=== PATIENT | male | born 1985 | race Caucasian/White ===

== ENCOUNTER 2021-04-13 02:14 | Emergency (ER) | payer OTHER ==
[2021-04-13 02:26] VITALS: BP 107/69
[2021-04-13] MEDS ORDERED: ONDANSETRON 4 MG/2 ML VIAL IVP STA (03:05)
[2021-04-13] MEDS ORDERED: SODIUM CHLORIDE 0.9% 1,000 ML IV ONE (03:05)
[2021-04-13 04:56] LABS: HCT 54.6 % (39.0-53.0); HGB 17.7 gm/dL (13.0-17.5); MCH 30.4 pg (25.0-35.0); MCHC 32.3 g/dL (31.0-37.0); MCV 94.1 fL (80.0-100.0); Mean Platelet Volume 7.5; Platelet Count 243 k/uL (150-450); RDW 12.9 % (11.5-15.5); WBC 11.3 k/uL (3.8-10.6)
[2021-04-13 05:29] LABS: Band Neutrophils % 28 %; Lymphocytes # (M) 0.34 k/uL (1.0-4.8); Neutrophils % (M) 61 %; Nucleated Red Blood Cells 0 /100 WBC (0-0); Total Cells Counted 200; Toxic Granulation Present
[2021-04-13 05:53] LABS: ALT 16 U/L (4-49); AST 23 U/L (17-59); African American GFR (CKD) >90 (>60 ml/min/1.73 sqM); Albumin 4.4 g/dL (3.5-5.0); Alkaline Phosphatase 70 U/L (38-126); Amylase 74 U/L (30-110); Anion Gap 7 mmol/L; Blood Urea Nitrogen 26 mg/dL (9-20); Calcium 9.3 mg/dL (8.4-10.2); Carbon Dioxide 23 mmol/L (22-30); Chloride 105 mmol/L (98-107); Glucose 128 mg/dL (74-99); Lipase 107 U/L (23-300); Non-African American GFR(CKD) >90 (>60 ml/min/1.73 sqM); Potassium 5.6 mmol/L (3.5-5.1); Sodium 135 mmol/L (137-145); Total Bilirubin 0.7 mg/dL (0.2-1.3); Total Protein 7.4 g/dL (6.3-8.2)
[2021-04-13 06:35] LABS: C Reactive Protein 2.4 mg/dL (<1.0)
[2021-04-13 08:43] VITALS: PULSE 102; RESP 18; TEMP 97.8
--- NOTE | 2021-05-22 12:51 | ED ---
Abdominal Pain HPI - General Chief Complaint: Abdominal Pain Stated Complaint: Abd Pain Time Seen by Provider: 04/13/21 02:59 Source: patient, EMS Mode of arrival: EMS Limitations: no limitations - History of Present Illness Initial Comments: Please note that this is a repeat dictation. The original appears to have been lost in the electronic record This patient is a 35-year-old man arriving here from [facility]. The patient had developed aching upper abdominal pain, nausea and vomiting this evening. Patient had not noted any worsening or relieving factors. There was no hematemesis or coffee-ground emesis. MD Complaint: abdominal pain -: hour(s) Location: LUQ, RUQ, epigastric Radiation: none Migration to: no migration Severity: moderate Quality: aching Consistency: constant Improves With: nothing Worsens With: nothing Associated Symptoms: nausea, vomiting Review of Systems ROS Statement: Those systems with pertinent positive or pertinent negative responses have been documented in the HPI. ROS Other: All systems not noted in ROS Statement are negative. Constitutional: Denies: fever, chills Respiratory: Denies: cough, dyspnea Cardiovascular: Denies: chest pain, palpitations, edema Gastrointestinal: Reports: abdominal pain, nausea, vomiting. Denies: diarrhea, constipation, hematemesis, melena, hematochezia Genitourinary: Denies: dysuria, hematuria, testicular pain Musculoskeletal: Denies: back pain Skin: Denies: rash Neurological: Denies: headache, weakness Past Medical History Past Medical History: No Reported History History of Any Multi-Drug Resistant Organisms: None Reported Past Surgical History: Appendectomy, Orthopedic Surgery Additional Past Surgical History / Comment(s): rt foot Past Psychological History: No Psychological Hx Reported Smoking Status: Current every day smoker Past Alcohol Use History: None Reported Past Drug Use History: Marijuana, Methamphetamine General Exam Limitations: no limitations General appearance: alert, in no apparent distress Head exam: Present: atraumatic, normocephalic Eye exam: Present: normal appearance. Absent: scleral icterus, conjunctival injection ENT exam: Present: normal oropharynx, mucous membranes moist Respiratory exam: Present: normal lung sounds bilaterally. Absent: respiratory distress, wheezes, rales, rhonchi, stridor Cardiovascular Exam: Present: regular rate, normal rhythm, normal heart sounds. Absent: systolic murmur, diastolic murmur, rubs, gallop GI/Abdominal exam: Present: soft. Absent: distended, tenderness, guarding, rebound, rigid, mass, pulsatile mass, hernia Extremities exam: Present: normal inspection, normal capillary refill. Absent: pedal edema Back exam: Present: normal inspection. Absent: CVA tenderness (R), CVA tenderness (L) Neurological exam: Present: alert Skin exam: Present: warm, dry, intact, normal color. Absent: rash Course Vital Signs 04/13/21 04/13/21 02:22 08:41 Temperature 98.9 F 97.8 F Pulse Rate 104 H 102 H Respiratory 20 18 Rate Blood Pressure 107/69 107/69 O2 Sat by Pulse 99 99 Oximetry Medical Decision Making - Medical Decision Making This patient is 35-year-old man with upper abdominal pain developing tonight as well as nausea and vomiting. He is feeling much better following fluids and antiemetic. On the exam there are no concerning abdominal findings. Given that patient is markedly better and workup unremarkable, will discharge back to the facility to continue his rehabilitation care. Discussed appropriate further care and follow-up as well as return parameters. - Lab Data Result diagrams: 04/13/21 04:28 04/13/21 05:20 Lab Results 04/13/21 04/13/21 04/13/21 Range/Units 04:28 04:28 05:20 WBC 11.3 H (3.8-10.6) k/uL RBC 5.80 (4.30-5.90) m/uL Hgb 17.7 H (13.0-17.5) gm/dL Hct 54.6 H (39.0-53.0) % MCV 94.1 (80.0-100.0) fL MCH 30.4 (25.0-35.0) pg MCHC 32.3 (31.0-37.0) g/dL RDW 12.9 (11.5-15.5) % Plt Count 243 (150-450) k/uL MPV 7.5 Neutrophils % (Manual) 61 % Band Neuts % (Manual) 28 % Lymphocytes % (Manual) 3 % Monocytes % (Manual) 8 % Neutrophils # (Manual) 10.00 H (1.3-7.7) k/uL Lymphocytes # (Manual) 0.34 L (1.0-4.8) k/uL Monocytes # (Manual) 0.90 (0-1.0) k/uL Nucleated RBCs 0 (0-0) /100 WBC Manual Slide Review Performed Toxic Granulation Present Sodium 135 L (137-145) mmol/L Potassium 5.6 H (3.5-5.1) mmol/L Chloride 105 (98-107) mmol/L Carbon Dioxide 23 (22-30) mmol/L Anion Gap 7 mmol/L BUN 26 H (9-20) mg/dL Creatinine 0.74 (0.66-1.25) mg/dL Est GFR (CKD-EPI)AfAm >90 (>60 ml/min/1.73 sqM) Est GFR (CKD-EPI)NonAf >90 (>60 ml/min/1.73 sqM) Glucose 128 H (74-99) mg/dL Plasma Lactic Acid Sandeep 1.8 (0.7-2.0) mmol/L Calcium 9.3 (8.4-10.2) mg/dL Total Bilirubin 0.7 (0.2-1.3) mg/dL AST 23 (17-59) U/L ALT 16 (4-49) U/L Alkaline Phosphatase 70 (38-126) U/L C-Reactive Protein 2.4 H (<1.0) mg/dL Total Protein 7.4 (6.3-8.2) g/dL Albumin 4.4 (3.5-5.0) g/dL Amylase 74 (30-110) U/L Lipase 107 (23-300) U/L Disposition Clinical Impression: Abdominal pain Disposition: HOME SELF-CARE Condition: Good Instructions (If sedation given, give patient instructions): Acute Abdominal Pain (DC) Is patient prescribed a controlled substance at d/c from ED?: No Referrals: None,Stated [Primary Care Provider] - 1-2 days
== END 2021-04-13 08:44 | disposition home or self-care (01) ==
LOC: EC 02:14
DX: R10.10 Upper abdominal pain, unspecified (principal); R11.2 Nausea with vomiting, unspecified; F17.200 Nicotine dependence, unspecified, uncomplicated
CPT/HCPCS: 36415; 80053; 82150; 83605; 83690; 85025; 86140; 99284

== ENCOUNTER 2022-09-13 11:41 | Emergency (ER) | payer OTHER ==
[2022-09-13 11:57] VITALS: RESP 18; TEMP 98
[2022-09-13] MEDS ORDERED: KETOROLAC 15 MG/ML 1 ML VIAL IM STA (12:29)
--- NOTE | 2022-09-13 12:55 | ED ---
General Adult HPI - General Chief complaint: Recheck/Abnormal Lab/Rx Stated complaint: lt hand injury Time Seen by Provider: 09/13/22 12:08 Source: patient Mode of arrival: ambulatory Limitations: no limitations - History of Present Illness Initial comments: Patient is a 37-year-old male who presents emergency department for left hand injury. Patient states he was diagnosed with a left hand fracture about 5 days ago at [facility]. States he took the splint off because it got wet. He did not follow-up with creative specialist. Patient tried to check in the [facility] for alcohol use 2 days ago and he was told he needed new splint and orthopedic clearance in order to be accepted. Patient denies reinjury. Reports mild pain in his hand. Denies numbness and tingling. - Related Data Previous Rx's Medication Instructions Recorded Acetaminophen Tab [Tylenol Tab] 1,000 mg PO Q6HR PRN #30 tablet 09/13/22 Ibuprofen [Motrin] 800 mg PO Q8HR PRN #30 tab 09/13/22 Allergies Allergy/AdvReac Type Severity Reaction Status Date / Time No Known Allergies Allergy Verified 09/13/22 11:57 Review of Systems ROS Statement: Those systems with pertinent positive or pertinent negative responses have been documented in the HPI. ROS Other: All systems not noted in ROS Statement are negative. Past Medical History Past Medical History: No Reported History History of Any Multi-Drug Resistant Organisms: None Reported Past Surgical History: Appendectomy, Orthopedic Surgery Additional Past Surgical History / Comment(s): rt foot Past Psychological History: No Psychological Hx Reported Smoking Status: Current every day smoker Past Alcohol Use History: Daily Past Drug Use History: Marijuana, Methamphetamine General Exam Limitations: no limitations General appearance: alert Respiratory exam: Present: normal lung sounds bilaterally. Absent: respiratory distress, wheezes, rales, rhonchi, stridor Cardiovascular Exam: Present: regular rate, normal rhythm, normal heart sounds. Absent: systolic murmur, diastolic murmur, rubs, gallop, clicks Left Elbow exam: Present: normal inspection, full ROM. Absent: tenderness, swelling Hand Wrist exam: Present: normal inspection, full ROM, tenderness (Third metacarpal dorsally). Absent: swelling, abrasion, laceration, ecchymosis, deformity, crepitus, dislocation, erythema, amputation, nail avulsion, subungual hematoma Neurological exam: Present: alert, oriented X3, CN II-XII intact Psychiatric exam: Present: normal affect, normal mood Skin exam: Present: warm, dry, intact, normal color. Absent: rash Course Vital Signs 09/13/22 09/13/22 11:53 13:25 Temperature 98 F Pulse Rate 74 72 Respiratory 18 18 Rate Blood Pressure 125/81 128/79 O2 Sat by Pulse 99 99 Oximetry Procedures - Orthopedic Splinting/Casting Injury #1 Upper Extremity Immobilizer: volar splint Medical Decision Making - Medical Decision Making Was pt. sent in by a medical professional or institution (, [facility], SCIENTIFIC LINGUIST, urgent care, hospital, or senior living...) When possible be specific @ -No Did you speak to anyone other than the patient for history (EMS, parent, family, police, friend...)? What history was obtained from this source @ -No Did you review nursing and triage notes (agree or disagree)? Why? @ -I reviewed and agree with nursing and triage notes Were old charts reviewed (outside hosp., previous admission, EMS record, old EKG, old radiological studies, urgent care reports/EKG's, senior living records)? Report findings @ -No old charts were reviewed Differential Diagnosis (chest pain, altered mental status, abdominal pain women, abdominal pain men, vaginal bleeding, weakness, fever, dyspnea, syncope, headache, dizziness, GI bleed, back pain, seizure, CVA, palpatations, mental health)? @ -Fracture, dislocation, contusion. This list is not meant to be all- inclusive EKG interpreted by me (3pts min.). @ -As above X-rays interpreted by me (1pt min.). @ -left third metacarpal fracture with mild displacement CT interpreted by me (1pt min.). @ -None done U/S interpreted by me (1pt. min.). @ -None done What testing was considered but not performed or refused? (CT, X-rays, U/S, labs)? Why? @ -None What meds were considered but not given or refused? Why? @ -None Did you discuss the management of the patient with other professionals (professionals i.e. [facility], SCIENTIFIC LINGUIST, lab, RT, psych nurse, high school social science teacher, spring fitter helper, teacher, reserve officer, casework manager)? Give summary @ -No Was smoking cessation discussed for >3mins.? @ -No Was critical care preformed (if so, how long)? @ -No Were there social determinants of health that impacted care today? How? (H omelessness, low income, unemployed, alcoholism, drug addiction, transportation, low edu. Level, literacy, decrease access to med. care, fdc, rehab)? @ -No Was there de-escalation of care discussed even if they declined (Discuss DNR or withdrawal of care, Hospice)? DNR status @ -No What co-morbidities impacted this encounter? (DM, HTN, Smoking, COPD, CAD, Cancer, CVA, ARF, Chemo, Hep., AIDS, mental health diagnosis, sleep apnea, morbid obesity)? @ -None Was patient admitted / discharged? Hospital course, mention meds given and route, prescriptions, significant lab abnormalities, going to OR and other pertinent info. @ -Patient presenting for reevaluation of hand fracture. He has tenderness to left third metacarpal without deformity, swelling, erythema. Capillary refill is < 2 seconds. Sensation intact. There is full range of motion. Repeat x-ray obtained interpreted by myself showing left third metacarpal fracture with mild displacement. Patient was placed in new splint. Neurovascularly intact on reassessment. Patient requesting orthopedic clearance which I declined. I did write him a note stating he is to keep splint on and orthopedic follow-up is recommended but not emergent currently. Fracture care education provided. Undiagnosed new problem with uncertain prognosis? @ -No] Drug Therapy requiring intensive monitoring for toxicity (Heparin, Nitro, Insulin, Cardizem)? @ -[No] Were any procedures done? @ -Yes, splinting Diagnosis/symptom? @ -Third metacarpal fracture Acute, or Chronic, or Acute on Chronic? @ Acute Uncomplicated (without systemic symptoms) or Complicated (systemic symptoms)? @ -Uncomplicated Side effects of treatment? @ -[No] Exacerbation, Progression, or Severe Exacerbation? @ -[No] Poses a threat to life or bodily function? How? (Chest pain, USA, DC, pneumonia, PE, COPD, DKA, ARF, appy, cholecystitis, CVA, Diverticulitis, Homicidal, Suicidal, threat to staff... and all critical care pts) @ -[No] Dr. Gray is my attending Disposition Clinical Impression: Fracture of third metacarpal bone of left hand Disposition: HOME SELF-CARE Condition: Good Instructions (If sedation given, give patient instructions): Hand Fracture (ED) Additional Instructions: Keep splint clean and dry. It needs to be kept on. Rest and elevate the joint as much as possible. Take Tylenol or Motrin as needed for pain. Follow-up with creative specialist as soon as possible. Return to the emergency department if you experience new, concerning, or worsening symptoms. Prescriptions: Ibuprofen [Motrin] 800 mg PO Q8HR PRN #30 tab PRN Reason: Pain Acetaminophen Tab [Tylenol Tab] 1,000 mg PO Q6HR PRN #30 tablet PRN Reason: Pain Is patient prescribed a controlled substance at d/c from ED?: No Referrals: None,Stated [Primary Care Provider] - 1-2 days
--- NOTE | 2022-09-13 12:57 | XR ---
EXAMINATION TYPE: XR hand complete LT DATE OF EXAM: 09/13/2022 12:41 PM INDICATION: Patient age:Male; 37 years old; Reason for study: fracture; PHH. COMPARISON: 09/13/2021 TECHNIQUE: Frontal, lateral and oblique views of the left hand were obtained. FINDINGS: Oblique fracture through the third metacarpal. Probable intra-articular extension with drai n the third and fourth metacarpal joint. There is soft tissue swelling. IMPRESSION: Acute oblique fracture of the third metacarpal with mild displacement and extension to the third/four th metacarpal joint.
[2022-09-13 13:26] VITALS: BP 128/79; PULSE 72
== END 2022-09-13 13:26 | disposition home or self-care (01) ==
LOC: EC 11:41
DX: S62.303A Unspecified fracture of third metacarpal bone, left hand, initial encounter for closed fracture (principal); F17.200 Nicotine dependence, unspecified, uncomplicated; F12.90 Cannabis use, unspecified, uncomplicated; X58.XXXA Exposure to other specified factors, initial encounter
CPT/HCPCS: 73130; 99283; 96372; 29125; J1885